=== PATIENT | male | born 1975 | race Caucasian/White ===

== ENCOUNTER 2024-09-30 13:17 | Emergency (ER) | payer OTHER, SELFPAY ==
[2024-09-30 13:26] VITALS: BP 144/103; PULSE 106; TEMP 36.8; O2SAT 97; BMI 37.5
--- NOTE | 2024-09-30 13:35 | XR_ITS ---
[facility] [id number] Patient Name: HOMERO HODGES MRN: [id number] date: 1975 Sex: M Assigned Patient Location: ER Current Patient Location: ED.MAIN Accession/Order Number: [id number] Exam Date: 09/30/2024 13:48 Report Date: 09/30/2024 14:36 At the request of: BEN JOY Procedure: XR ankle RT min 3V EXAM: XR knee RT 4V, XR ankle RT min 3V HISTORY: fall x 1 week COMPARISON: None. TECHNIQUE: 3 views of the right knee and ankle FINDINGS: There is no acute fracture or dislocation. There is moderate diffuse spur. There is moderate to severe knee osteoarthritis. No knee effusion. The soft tissue is unremarkable. XR/XR ankle RT min 3V IMPRESSION: No acute fracture. Electronically authenticated by: MONE BRAN Date: 09/30/2024 14:36
--- NOTE | 2024-09-30 13:35 | XR_ITS ---
[facility] [id number] Patient Name: HOMERO HODGES MRN: [id number] date: 1975 Sex: M Assigned Patient Location: ER Current Patient Location: ED.MAIN Accession/Order Number: [id number] Exam Date: 09/30/2024 13:48 Report Date: 09/30/2024 14:36 At the request of: BEN JOY Procedure: XR knee RT 4V EXAM: XR knee RT 4V, XR ankle RT min 3V HISTORY: fall x 1 week COMPARISON: None. TECHNIQUE: 3 views of the right knee and ankle FINDINGS: There is no acute fracture or dislocation. There is moderate diffuse spur. There is moderate to severe knee osteoarthritis. No knee effusion. The soft tissue is unremarkable. XR/XR knee RT 4V IMPRESSION: No acute fracture. Electronically authenticated by: MONE BRAN Date: 09/30/2024 14:36
--- NOTE | 2024-09-30 13:36 | ED.LOWEXI1 ---
HPI HPI - Extremity Injury (Lower) General Chief Complaint: Extremity Injury, Lower Stated Complaint: LOWER EXTERMITY Time Seen by Provider: 09/30/24 13:20 Source: patient Mode of arrival: walk-in Limitations: other Limitations comment: none History of Present Illness HPI Narrative: Patient is a 48-year-old male who presents to the emergency department for continued pain in the right ankle and right knee after a twisting injury 1 week ago. He states his right foot got caught between 2 rocks and he lost his balance and fell twisting the right ankle and knee. He has no significant pain at rest in the right knee but with ambulating has some pain to the right lateral and posterior knee. He reports most of his pain in the right lateral malleolus. He has been ambulating. No medications prior to arrival. He has no history of diabetes and does not take blood thinners. Related Data Previous Rx's ?Medication ?Instructions ?Recorded ketorolac 10 mg tablet 10 mg PO TID PRN pain #10 tabs 09/30/24 methylprednisolone 4 mg tablets in See Rx Instructions .Route 09/30/24 a dose pack (Medrol (Gómez)) .COMPLEX #21 ea Allergies Allergy/AdvReac Type Severity Reaction Status Date / Time meperidine (From Demerol) Allergy syncope Verified 09/30/24 13:26 Opioid HPI Opioid Management Most Recent Pain and Opioid Data: No Data to Display Review of Systems ROS Constitutional Denies: fever or chills Ears, nose, mouth, and throat Denies: throat pain or nasal congestion Cardiovascular Denies: chest pain Respiratory Denies: shortness of breath or cough Gastrointestinal Denies: nausea or vomiting Musculoskeletal Denies: back pain Integumentary/Breast Denies: rash Neurological Denies: numbness in extremities or weakness in extremities Hematologic/Lymphatic Denies: easy bruising or easy bleeding PFSH PFSH Social History Little interest or pleasure in doing things: not at all Feeling down, depressed, or hopeless: not at all Exam Narrative Exam Narrative: Gen.: Awake, alert, in no distress Head: Normocephalic, atraumatic ENT: Moist mucous membranes Respiratory: No respiratory distress Extremities: No bony tenderness of the right foot with 2+ right DP pulse. Diffuse tenderness of the right lateral malleolus with mild tenderness of the right medial malleolus. No obvious deformity. Mild edema noted. No bony tenderness of the right anterior tibia with minimal tenderness noted of the right lateral/posterior knee. No laxity of the patella. No joint effusion palpated of the right knee. Psych: Normal mood and affect Neuro: No focal neuro deficit Skin: Warm, dry, intact Constitutional Vital Signs, click to edit/add: Last Vital Signs Temp 98.3 F 09/30/24 13:26 Pulse 106 H 09/30/24 13:26 Resp 18 09/30/24 13:26 BP 144/103 H 09/30/24 13:26 Pulse Ox 97 09/30/24 13:26 O2 Del Method Room Air 09/30/24 13:26 Course Vital Signs Vital signs: Vital Signs Temperature 98.3 F 09/30/24 13:26 Pulse Rate 106 H 09/30/24 13:26 Respiratory Rate 18 09/30/24 13:26 Blood Pressure 144/103 H 09/30/24 13:26 Pulse Oximetry 97 09/30/24 13:26 Oxygen Delivery Method Room Air 09/30/24 13:26 Temperature 98.3 F 09/30/24 13:26 Pulse Rate 106 H 09/30/24 13:26 Respiratory Rate 18 09/30/24 13:26 Blood Pressure 144/103 H 09/30/24 13:26 Pulse Oximetry 97 09/30/24 13:26 Oxygen Delivery Method Room Air 09/30/24 13:26 MDM - Extremity Injury (Lower) MDM Narrative Medical decision making narrative: X-rays reviewed by the radiologist of the right knee and right ankle are unremarkable, mild degenerative changes noted. Patient placed in an Naman wrap of the right knee and Naman wrap Aircast of the right ankle. He remains neurovascularly intact. Rest, ice, elevate. A short course of NSAIDs and a steroid taper sent for home. Follow-up with orthopedics as needed and return to the ER if symptoms change or worsen SUPERVISED APC VISIT, PHYSICIAN ATTESTATION: Based on the medical record the care appears appropriate. ? Medical Records Attestation: I reviewed the patient's medical records. Imaging Data xr ankle: Attestation: I have reviewed the pertinent imaging results. Radiologist's impression: ITS Impressions Ankle X-Ray 09/30/24 13:35 IMPRESSION: No acute fracture. Electronically authenticated by: MONE BRAN Date: 09/30/2024 14:36 Knee X-Ray 09/30/24 13:35 IMPRESSION: No acute fracture. Electronically authenticated by: MONE BRAN Date: 09/30/2024 14:36 Discharge Plan Discharge Chief Complaint: Extremity Injury, Lower Clinical Impression: Right ankle sprain, Right knee sprain Patient Disposition: Home, Self-Care Time of Disposition Decision: 14:46 Condition: Good Prescriptions / Home Meds: New ketorolac 10 mg tablet 10 mg PO TID PRN (Reason: pain) Qty: 10 0RF methylprednisolone [Medrol (Gómez)] 4 mg tablets,dose pack See Rx Instructions .ROUTE .COMPLEX Qty: 21 0RF Rx Instructions: Taper as directed Print Language: [place] Irish Instructions: Ankle Sprain (ED), Knee Sprain (ED) Referrals: Edgar Lawson MD [Primary Care Provider] - 1 week Drake Zavaleta MD [Physician] - As needed
== END 2024-09-30 14:58 | disposition home or self-care (01) ==
PROVIDERS: Emergency Provider Emergency Medicine; Family Provider Family Medicine; PCP Family Medicine
DX: S93.401A Sprain of unspecified ligament of right ankle, initial encounter (principal); S83.91XA Sprain of unspecified site of right knee, initial encounter; W18.39XA Other fall on same level, initial encounter; X50.1XXA Overexertion from prolonged static or awkward postures, initial encounter
CPT/HCPCS: 73564; 73610; 99283